=== PATIENT | male | born 1980 | race Caucasian/White ===

== ENCOUNTER 2025-05-06 13:24 | Emergency (ER) | payer MEDICAID ==
[~2025-05-06] VITALS: Ht 182.9 cm; Wt 79.5 kg
[~2025-05-06 13:24] MED LIST: AZIT250T PO; NO HOME MEDS
[2025-05-06 13:27] VITALS: BP 115/75; PULSE 99; RESP 18; TEMP 97.8; O2SAT 100
--- NOTE | 2025-05-06 14:57 | Physician Documentation ---
History of Present Illness ~ Chief Complaint: Bite-insect Stated Complaint: ABSCESS Time Seen by MD: 14:47 Primary Medical Doctor: none Source: patient Mode of Arrival: POV Exam Limitations: no limitations HPI 44 yo male with insect bit to left forearm and ear lobe concerned for cellulitis. happened a couple days ago. No fever Tetanus within 5 years?: No Medication Reconciliation Allergies: Coded Allergies: No Known Allergies (Unverified , 11/16/11) Scheduled Azithromycin (Zithromax), 1 DOSPAK PO UD Sulfamethoxazole/Trimethoprim (Bactrim Ds Tablet), 1 TAB PO Q12H Miscellaneous Medications Home Med List (No Home Medications), (Reported) Past Medical History Past Medical History: No Pertinent History Past Surgical History: no surgical history Alcohol Use: None Drug Use: marijuana Lives with: S/O Lives In: Home Occupation: unemployed Review of Systems All Other Systems at this time: Reviewed and Negative Integumentary: Reports: see HPI Physical Exam Vital Signs: RN Vital Signs have been reviewed: Yes, Temperature: 97.8, Source: Oral, Heart Rate: 99, Respiratory Rate: 18, BP: 115/75, Pulse Oximetry: 100, Weight: 79.550 General Appearance: alert, WD/WN, no apparent distress Eyes, Ears, Nose: other (small scab to left earlobe no abscess) Cardiovascular: normal peripheral pulses, regular rate, rhythm, no edema Respiratory: lungs clear, normal breath sounds, no respiratory distress Chest: no accessory muscle use; No: retractions Skin right anterior forearm Lymphatic: tenderness, other (2 cm area of erythema wo fluctuence and scattered small lessions/bites ) Progress Results/Orders Results/Orders Completed Orders - LORA KAN NP Bacitracin Ointment (Bacitracin Ointment (05/06/25 15:05) Vital Signs 05/06/25 13:27 Temp 97.8 Pulse 99 Resp 18 B/P (MAP) 115/75 Pulse Ox 100 Medical Decision Making Findings Lesions forearm with one larger area of induration and erythema antibiotics prescribed close monitoring and follow up with primary care Departure Time of Disposition: 14:57 Disposition: 01 HOME / SELF CARE / HOMELESS Impression: Primary Impression: Insect bites Additional Impression: Cellulitis Condition: Stable Discharge Instructions: Insect Bite, Adult, Swop-[place]-Erde Additional Instructions: Take antibiotics as prescribed and f/u with primary care Referrals: NO PRIMARY CARE PROVIDER (PCP) Prescriptions Sulfamethoxazole/Trimethoprim (Bactrim Ds Tablet) 800 Mg-160 Mg Tablet 1 TAB PO Q12H for 7 Days, #14 TAB Prov: LORA KAN NP 05/06/25 Education Educated: Patient, Family Educated regarding: diagnosis, treatment, need for follow up Signature Scribe Signature: no scribe Attestation: The note accurately reflects work and decisions made by me.Lora Kan - ROZINA 05/06/25 14:58 LORA KAN NP May 06, 2025 14:57
[2025-05-06] MEDS ORDERED: SULF1TAB49 PO (14:58)
[2025-05-06] MEDS: bacitracin 15gm ointment TP ONE (15:14)
== END 2025-05-06 15:16 | disposition home or self-care (01) ==
LOC: ER 13:25
DX: S50.862A Insect bite (nonvenomous) of left forearm, initial encounter (principal); S00.462A Insect bite (nonvenomous) of left ear, initial encounter; L03.114 Cellulitis of left upper limb; H60.12 Cellulitis of left external ear; W57.XXXA Bitten or stung by nonvenomous insect and other nonvenomous arthropods, initial encounter; Y93.89 Activity, other specified; Y92.89 Other specified places as the place of occurrence of the external cause; Y99.8 Other external cause status
CPT/HCPCS: 99283

== ENCOUNTER 2025-05-09 00:49 | Emergency (ER) | payer MEDICAID ==
[~2025-05-09] VITALS: Ht 182.9 cm; Wt 79.0 kg
[~2025-05-09 00:49] MED LIST changes: +SULF1TAB49 PO
[2025-05-09 00:56] VITALS: BP 120/75; PULSE 98; RESP 20; TEMP 98; O2SAT 99
== END 2025-05-09 04:44 | disposition left against medical advice (07) ==
LOC: ER 00:50
DX: S50.862A Insect bite (nonvenomous) of left forearm, initial encounter (principal); Z53.21 Procedure and treatment not carried out due to patient leaving prior to being seen by health care provider; W57.XXXA Bitten or stung by nonvenomous insect and other nonvenomous arthropods, initial encounter; Y93.89 Activity, other specified; Y92.89 Other specified places as the place of occurrence of the external cause; Y99.8 Other external cause status

== ENCOUNTER 2025-07-28 03:35 | Emergency (ER) | payer MEDICAID, OTHER ==
[~2025-07-28] VITALS: Ht 182.9 cm; Wt 79.5 kg
[~2025-07-28 03:35] MED LIST changes: -SULF1TAB49 PO
--- NOTE | 2025-07-28 04:11 | Physician Documentation ---
History of Present Illness ~ Chief Complaint: Leg Pain Stated Complaint: LEG INFECTION Time Seen by MD: 04:10 Primary Medical Doctor: none HPI Patient presents to the emergency room with infection to his right knee. He states he has a history of cellulitis and this is similar. Able to move knee without issue. No fevers Tetanus witin 5 years: No Medication Reconciliation Allergies: Coded Allergies: No Known Allergies (Unverified , 07/28/25) Scheduled Azithromycin (Zithromax), 1 DOSPAK PO UD Miscellaneous Medications Home Med List (No Home Medications), (Reported) Past Medical History Past Medical History: No Pertinent History Past Surgical History: no surgical history Alcohol Use: None Drug Use: marijuana Lives with: S/O Lives In: Home Occupation: unemployed Review of Systems ROS All review of systems negative except as per HPI Physical Exam Vital Signs: Temperature: 98.6, Source: Oral, Heart Rate: 95, Respiratory Rate: 16, BP: 119/80, Pulse Oximetry: 99, Weight: 79.550 Physical Exam General: Patient is awake, alert, oriented x4 in no acute distress Head: Normocephalic and atraumatic. Eyes: Conjunctival normal. EOMI. PERRL. ENT: Mucous membranes moist. Neck: Supple, trachea is midline. Chest: Clear to auscultation bilaterally without rales, rhonchi, or wheezes. There is no accessory muscle use or retractions. Cardiac: RRR without murmurs, gallops, or rubs. Abd: Soft, nondistended, nontender, with normoactive bowel sounds. No guarding, rebound, or rigidity. Extremities: 5 cm 5 cm area of cellulitis to patella. Able to move knee freely. No fluctuance Progress Results/Orders Results/Orders Vital Signs 07/28/25 03:51 Temp 98.6 Pulse 95 Resp 16 B/P (MAP) 119/80 Pulse Ox 99 Medical Decision Making Findings Patient presents to the emergency room for evaluation of knee pain as per HPI. Differentials include but are not limited to cellulitis, abscess, septic arthritis, gout. Physical exam consistent with cellulitis and we will treat him as such Departure Disposition: HOME / SELF CARE / HOMELESS Impression: Primary Impression: Cellulitis Condition: Stable Discharge Instructions: Cellulitis, Adult Referrals: NO PRIMARY CARE PROVIDER (PCP) Prescriptions Sulfamethoxazole/Trimethoprim (Bactrim Ds Tablet) 800 Mg-160 Mg Tablet 1 TAB PO Q12H for 10 Days, #20 TAB Prov: CHRISTO ROCKWELL MD 07/28/25 Signature Scribe Signature: No scribe Attestation: The note accurately reflects work and decisions made by me.Christo Rockwell MD 07/28/25 04:14 CHRISTO ROCKWELL MD Jul 28, 2025 04:11
[2025-07-28] MEDS ORDERED: SULF1TAB49 PO (04:14)
[2025-07-28] MEDS: sulfamethoxazole/trimethoprim DS (800/160mg) tablet PO ONE (04:21)
[2025-07-28 04:23] VITALS: BP 129/73; PULSE 55; RESP 16; TEMP 98.6; O2SAT 98
== END 2025-07-28 04:25 | disposition home or self-care (01) ==
LOC: ER 03:36
DX: L03.115 Cellulitis of right lower limb (principal)
CPT/HCPCS: 99283